=== PATIENT | female | born 1990 | race Two or more races ===

== ENCOUNTER 2023-07-11 21:51 | Emergency (ER) | payer OTHER ==
[~2023-07-11] VITALS: Ht 152.4 cm; Wt 64.0 kg
[2023-07-11 21:53] VITALS: PULSE 79; RESP 19; O2SAT 95
[2023-07-12 02:19] LABS: Urine Bacteria FEW /hpf (None Seen); Urine Blood Negative /uL (Negative); Urine Clarity HAZY (Clear); Urine Color Yellow (Yellow); Urine Hyaline Cast FEW /lpf (0 - 2); Urine Mucus FEW (None Seen); Urine Protein, UAD TRACE (Negative); Urine WBC 54 /hpf (0 - 5); Urine WBC Clumps PRESENT /hpf (None Seen); Urine pH 6.5 (5.0-8.0)
[2023-07-12 02:25] LABS: Amphetamine Screen, Urine Neg (NEGATIVE); Barbiturate Scree,Urine Neg (NEGATIVE); Benzodiazephine Screen, Urine Neg (NEGATIVE); Cannabinoid Screen, Urine Neg (NEGATIVE); Cocaine Screen, Urine Neg (NEGATIVE); Opiate Scree,Urine Neg (NEGATIVE); Phencyclidine Screen, Urine Neg (NEGATIVE)
[2023-07-12 03:00] VITALS: BP 94/60; PULSE 82; RESP 22; TEMP 98.1; O2SAT 97
[2023-07-12] MEDS: MECLIZINE HCL 25 MG TAB PO ONE (03:05)
[2023-07-12] MEDS: CEPHALEXIN 250 MG CAP PO ONE (03:05)
[2023-07-12] MEDS: PHENAZOPYRIDINE HCL 100 MG TAB PO ONE (03:05)
[2023-07-12] MEDS ORDERED: CEPH500T PO (03:29)
[2023-07-12] MEDS ORDERED: MECL1TAB32 PO (03:29)
[2023-07-12] MEDS ORDERED: PHEN95TA10 PO (03:29)
== END 2023-07-12 03:38 | disposition home or self-care (01) ==
LOC: ER 21:51
DX: N39.0 Urinary tract infection, site not specified (principal); M79.642 Pain in left hand; M79.641 Pain in right hand; Z79.899 Other long term (current) drug therapy
CPT/HCPCS: 80307; 81001; 81025; 99284; J8597